=== PATIENT | female | born 1995 | race African-American/Black ===

== ENCOUNTER 2020-04-24 21:27 | Observation (INO) | payer SELFPAY ==
[~2020-04-24] VITALS: Ht 170.2 cm; Wt 56.5 kg
[~2020-04-24 21:27] MED LIST: GABA400C7 PO; GABA600T7 PO; INSU100I13 SQ; INSU100I17 SQ
[2020-04-24] MEDS ORDERED: ONDANSETRON ODT 4 MG TAB.RAPDIS. ONE (21:31)
[2020-04-24] MEDS ORDERED: IV NORMAL SALINE 1000ML BAG 1,000 ML IV ONE ×2 (22:00→22:45)
[2020-04-24] MEDS ORDERED: ONDANSETRON PF 4 MG/2 ML VIAL. IVP ONE (22:00)
--- NOTE | 2020-04-24 22:24 | PHYS DOC ---
Past Medical History Past Medical History: Diabetes-Type I Additional Past Medical Histor: GASTROPARESIS Past Surgical History: No Surgical History Additional Past Surgical Histo: LT OVARIAN CYST Smoking Status: Current Every Day Smoker Alcohol Use: None Drug Use: Marijuana Social History Narrative: DAILY MARIJUANA USE General Adult EDM: Chief Complaint: NAUSEA/VOMITING/DIARRHA HPI: HPI: 24-year-old female with a past medical history of IDDM presents for evaluation of nausea and vomiting and abdominal pain. Onset of symptoms 3 days ago. Patient unable to keep anything down. Patients abdominal pain is diffuse. Patient denies chest pain sob fever chills or urinary symptoms. Review of Systems: Review of Systems: Constitutional: Denies fever or chills. [] Eyes: Denies change in visual acuity. [] HENT: Denies nasal congestion or sore throat. [] Respiratory: Denies cough or shortness of breath. [] Cardiovascular: Denies chest pain or edema. [Positive] GI: Positive abdominal pain, nausea, vomiting, denies bloody stools or diarrhea. [] : Denies dysuria. [] Musculoskeletal: Denies back pain or joint pain. [] Integument: Denies rash. [] Neurologic: Denies headache, focal weakness or sensory changes. [] Endocrine: Denies polyuria or polydipsia. [] Lymphatic: Denies swollen glands. [] Psychiatric: Denies depression or anxiety. [] Heart Score: Risk Factors: Risk Factors: DM, Current or recent (<one month) smoker, HTN, HLP, family history of CAD, obesity. Risk Scores: Score 0 - 3: 2.5% MACE over next 6 weeks - Discharge Home Score 4 - 6: 20.3% MACE over next 6 weeks - Admit for Clinical Observation Score 7 - 10: 72.7% MACE over next 6 weeks - Early Invasive Strategies Current Medications: Current Medications Medications (Trade) Dose Ordered Sig/Felicity Start Time Stop Time Status Last Admin Dose Admin Ondansetron HCl (Zofran Odt) 4 mg STK-MED ONCE 04/24/20 21:31 04/24/20 21:31 DC Ondansetron HCl (Zofran) 4 mg 1X ONCE 04/24/20 22:00 04/24/20 22:01 DC Sodium Chloride 1,000 ml @ 1,000 mls/hr 1X ONCE 04/24/20 22:00 04/24/20 22:59 Allergies: Allergies: Allergies Coded Allergies Type Severity Reaction Last Updated Verified I S O L A T I O N *CONTACT* Allergy Unknown 05/06/18 Yes No Known Medication Allergies Allergy Unknown 05/06/18 Yes Physical Exam: PE: Constitutional: Well developed, well nourished, mild acute distress, non-toxic appearance. [] HENT: Normocephalic, atraumatic, bilateral external ears normal, oropharynx moist, no oral exudates, nose normal. [] Eyes: PERRLA, EOMI, conjunctiva normal, no discharge. [] Neck: Normal range of motion, no tenderness, supple, no stridor. [] Cardiovascular: Tachycardia Lungs & Thorax: Bilateral breath sounds clear to auscultation [] Abdomen: Bowel sounds normal, soft, diffuse tenderness, no masses, no pulsatile masses. [] Skin: Warm, dry, no erythema, no rash. [] Back: No tenderness, no CVA tenderness. [] Extremities: No tenderness, no cyanosis, no clubbing, ROM intact, no edema. [] Neurologic: Alert and oriented X 3, normal motor function, normal sensory function, no focal deficits noted. [] Psychologic: Affect normal, judgement normal, mood normal. [] Current Patient Data: Labs: Laboratory Tests Test 04/24/20 21:35 Glucose (Fingerstick) 232 mg/dL (70-99) H Vital Signs: Vital Signs Date Time Temp Pulse Resp B/P (MAP) Pulse Ox O2 Delivery O2 Flow Rate FiO2 04/24/20 21:29 99.2 137 17 146/86 (106) 100 Room Air 99.2 EKG: EKG: [] EKG taken at 2156 Heart rate [address] elevation no ST depression no acute MT Radiology/Procedures: Radiology/Procedures: [] Course & Med Decision Making: Course & Med Decision Making Pertinent Labs and Imaging studies reviewed. (See chart for details) [] Patient was evaluated for chief complaint. Work-up consisted of laboratory analysis and radiologic imaging. Results reviewed. Patient tachycardic heart rate in the 120s 130s. Patient was treated with multiple liters of IV fluids. Patient white blood cell count found to be 29. Treatment included morphine for pain, Zofran Reglan and Compazine. Difficulty controlling patient's nausea. CT abdomen shows no acute abnormalities. Patient ABG within normal limits. Patient admitted to the hospital for IV fluids and antiemetics. Dragon Disclaimer: Dragon Disclaimer: This electronic medical record was generated, in whole or in part, using a voice recognition dictation system. Departure Departure Impression: Primary Impression: Vomiting Additional Impressions: Leukocytosis Acute renal failure Abdominal pain Disposition: ADMITTED INPATIENT Admitting Physician: ARMEN Condition: STABLE Referrals: NO PCP (PCP) Justicifation of Admission Dx: Justifications for Admission: Justification of Admission Dx: Yes Acute Renal Failure: 3-Fold Rise in Serum Crea KIN LAMB I DO Apr 24, 2020 22:23
[2020-04-24 22:33] LABS: BASO # 0.1 x10^3/uL (0.0-0.2); BASO % 0 % (0-3); EOS % 0 % (0-3); HEMATOCRIT 38.8 % (36.0-47.0); HEMOGLOBIN 12.8 g/dL (12.0-15.5); LYMPH # 1.2 x10^3/uL (1.0-4.8); LYMPH % 4 % (24-48); MEAN CORPUSCULAR HEMOGLOBIN 29 pg (25-35); MEAN CORPUSCULAR HGB CONC 33 g/dL (31-37); MEAN CORPUSCULAR VOLUME 88 fL (79-100); MONO # 1.2 x10^3/uL (0.0-1.1); MONO % 4 % (0-9); NEUT # 26.7 x10^3/uL (1.8-7.7); NEUT % 92 % (31-73); PLATELET COUNT 301 x10^3/uL (140-400); RED BLOOD COUNT 4.41 x10^6/uL (3.50-5.40); RED CELL DISTRIBUTION WIDTH 14.3 % (11.5-14.5); WHITE BLOOD COUNT 29.2 x10^3/uL (4.0-11.0)
[2020-04-24] MEDS ORDERED: MORPHINE SULFATE 4 MG/ML VIAL. IV ONE (22:45)
[2020-04-24] MEDS ORDERED: METOCLOPRAMIDE HCL 10 MG/2 ML VIAL. IVP ONE (22:45)
[2020-04-24 22:48] LABS: CALCIUM 9.9 mg/dL (8.5-10.1); CREATININE 2.9 mg/dL (0.6-1.0); GFR 23.7; POTASSIUM 3.5 mmol/L (3.5-5.1)
[2020-04-24 22:54] LABS: ALBUMIN 4.5 g/dL (3.4-5.0); TOTAL BILIRUBIN 0.6 mg/dL (0.2-1.0); TOTAL PROTEIN 9.2 g/dL (6.4-8.2)
[2020-04-24 23:30] LABS: % BANDS 5 % (0-9); % LYMPHS 9 % (24-48); % MONOS 10 % (0-10); % SEGS 76 % (35-66)
[2020-04-24 23:31] LABS: PLT ESTIMATE ADEQUATE (ADEQUATE)
[2020-04-24 23:44] LABS: BILIRUBIN,URINE SMALL (NEG); CLARITY,URINE CLEAR; COLOR,URINE YELLOW; NITRITE,URINE NEGATIVE (NEG); PH,URINE 5.5 (<5.0-8.0); PROTEIN,URINE >=300 mg/dL (NEG-TRACE); UROBILINOGEN,URINE 0.2 mg/dL (0.2 mg/dL)
[2020-04-25 00:07] LABS: AMORPHOUS SEDIMENT,UR PRESENT /HPF; BACTERIA,URINE FEW /HPF (0-FEW); GRANULAR CASTS,URINE FEW /HPF; HYALINE CASTS, URINE FEW /HPF; SQUAMOUS EPITHELIAL CELL,UR FEW /LPF
--- NOTE | 2020-04-25 00:22 | RAD ---
CT abdomen pelvis without contrast. HISTORY: Abdominal pain, nausea and vomiting, elevated creatinine at 2.9. CT scan the abdomen pelvis was done without contrast. Lung bases are clear. There is no effusion. A liver lesion is not identified. There is no calcified gallstone. There is no renal or ureteral calculus. There is no hydronephrosis. Spleen and adrenal glands are normal. Pancreas is poorly evaluated. There is no free air or ascites. Appendix is normal. Bladder is distended. There is no bowel obstruction. There is a hiatus hernia. There is thickening of the distal esophagus is nonspecific. IMPRESSION: 1. Distended bladder. 2. Normal appendix. 3. Hiatus hernia. 4. Thickening the wall of the distal esophagus, upper endoscopy could be of benefit. PQRS Compliance Statement: One or more of the following individualized dose reduction techniques were utilized for this examination: 1. Automated exposure control 2. Adjustment of the mA and/or kV according to patient size 3. Use of iterative reconstruction technique Electronically signed by: Delfino Fischer MD (04/25/2020 12:19 AM) [id number]
[2020-04-25 00:32] LABS: BASE EXCESS ABG -1 mmol/L (-3-3); HCO3 ABG 24 mmol/L (21-28); PCO2 ABG 41 mmHg (35-46); PO2 ABG 81 mmHg (85-108); SAT O2 ABG 95 % (92-99)
[2020-04-25] MEDS ORDERED: PROCHLORPERAZINE 10 MG/2 ML VIAL. IV ONE (00:45)
[2020-04-25] MEDS ORDERED: ONDANSETRON PF 4 MG/2 ML VIAL. IV PRN (00:45)
[2020-04-25] MEDS ORDERED: IV NORMAL SALINE 1000ML BAG 1,000 ML IV ONE ×2 (00:45→03:00)
[2020-04-25 00:49] LABS: FIO2 ABG 21
[2020-04-25] MEDS ORDERED: PROCHLORPERAZINE 10 MG/2 ML VIAL. IV PRN (02:45)
[2020-04-25 03:02] VITALS: BP 148/84
--- NOTE | 2020-04-25 04:07 | NUR ---
Dr Ding notified that pt has critical BS - orders received - pt symptomatic with high blood sugar - [address] Ding. This RN pulled up insulin and had it witnessed per Giulia John RN and administered it due to pt beign symptomatic - nausea, hot dry skin, musty breath, very lethargic. Will continue to monitor pt status closely
[2020-04-25] MEDS ORDERED: IV DEXTROSE 5% 250 ML BAG. IV PRN (04:15)
[2020-04-25] MEDS ORDERED: DEXTROSE 50% 25 GM / 50ML DISP.SYRIN. IV PRN ×2 (04:15→07:45)
[2020-04-25] MEDS: INSULIN LISPRO 300 UNITS/3 ML VIAL. SQ ONE (04:45)
[2020-04-25 07:44] VITALS: BP 180/102
[2020-04-25] MEDS ORDERED: IV NORMAL SALINE 1000ML BAG 1,000 ML IV SCH (07:45)
[2020-04-25] MEDS ORDERED: INSULIN LISPRO 300 UNITS/3 ML VIAL. SQ SCH ×2 (08:00)
[2020-04-25] MEDS: ACETAMINOPHEN 325 MG TABLET. PO PRN ×2 (08:22→15:22)
[2020-04-25] MEDS: HEPARIN for SUB-Q USE 5,000 UNIT/ML VIAL. SQ SCH ×2 (08:30→13:32)
[2020-04-25] MEDS ORDERED: PANTOPRAZOLE IV PUSH 40 MG VIAL. IVP SCH (08:30)
[2020-04-25 08:31] LABS: AMPHETAMINE/METHAMPHETAMINE NEG (NEG); BARBITURATES NEG (NEG); BENZODIAZEPINES NEG (NEG); CANNABINOIDS POS (NEG); COCAINE NEG (NEG); METHADONE NEG (NEG); OPIATES NEG (NEG); PHENCYCLIDINE NEG (NEG)
[2020-04-25] MEDS ORDERED: INSULIN GLARGINE SYRINGE. SQ SCH ×2 (09:00→21:00)
--- NOTE | 2020-04-25 09:55 | NUR ---
Pt reports to this RN that she has an insulin pump in place that is now working. She reports basal dose is 0.7 units/hour. Glucose checks ACHS ordered, pt also periodically checks BS on her own. Pt able to give herself a bolus dose according to BS results. Pt agreed to notify this RN of any bolus doses administered through pump. This RN spoke to Dr. Will by telephone, orders received to discontinue insulin orders, as she has an insulin pump in place. Will start pt on ADA diet and monitor closely.
[2020-04-25] MEDS ORDERED: METOCLOPRAMIDE HCL 10 MG/2 ML VIAL. IVP PRN (10:15)
[2020-04-25] MEDS ORDERED: ONDANSETRON PF 4 MG/2 ML VIAL. IVP PRN (10:15)
--- NOTE | 2020-04-25 10:23 | PDOC1 ---
History and Physical Date of Admission Date of Admission DATE: 04/25/20 TIME: 10:10 Identification/Chief Complaint Chief Complaint NAUSEA AND VOMITING Problems: (1) Vomiting (2) Leukocytosis (3) Acute renal failure (4) Abdominal pain (5) Nausea & vomiting Source Source: Chart review, Patient History of Present Illness History of Present Illness 24 year old black female Insulin Dependent DM, no recent A1c who presents to the ED with nausea intractable non-bloody vomiting for 3 days. no diarrhea. decreased PO intake. patient has insulin pump. no fever at home. no chills or urinary symptoms. CT abdomen in ED shows: IMPRESSION: 1. Distended bladder. 2. Normal appendix. 3. Hiatus hernia. 4. Thickening the wall of the distal esophagus, upper endoscopy could be of benefit. in ED patient's with WBC 29k, cr 2.9. Past Medical History Past Medical History DM1, insulin dependent Pulmonary: No pertinent hx CENTRAL NERVOUS SYSTEM: Periperal neuropathy GI: GERD, Other Infectious disease: Other Endocrine: Diabetes Past Surgical History Past Surgical History: Other (ovarian cystectomy) Family History Family History: Hypertension Social History Smoke: No ALCOHOL: none Drugs: Marijuana Current Problem List Problem List Problems Medical Problems: (1) Abdominal pain Status: Acute (2) Vomiting Status: Acute Current Medications Current Medications Current Medications Ondansetron HCl (Zofran Odt) 4 mg STK-MED ONCE .ROUTE ; Start 04/24/20 at 21:31; Stop 04/24/20 at 21:31; Status DC Sodium Chloride 1,000 ml @ 1,000 mls/hr 1X ONCE IV Last administered on 04/24/20at 22:17; Start 04/24/20 at 22:00; Stop 04/24/20 at 22:59; Status DC Ondansetron HCl (Zofran) 4 mg 1X ONCE IVP Last administered on 04/24/20at 22:17; Start 04/24/20 at 22:00; Stop 04/24/20 at 22:01; Status DC Morphine Sulfate (Morphine Sulfate) 4 mg 1X ONCE IV Last administered on 04/24/20at 22:49; Start 04/24/20 at 22:45; Stop 04/24/20 at 22:46; Status DC Metoclopramide HCl (Reglan Vial) 10 mg 1X ONCE IVP Last administered on 04/24/20at 22:48; Start 04/24/20 at 22:45; Stop 04/24/20 at 22:46; Status DC Sodium Chloride 1,000 ml @ 1,000 mls/hr 1X ONCE IV Last administered on 04/24/20at 22:55; Start 04/24/20 at 22:45; Stop 04/24/20 at 23:44; Status DC Prochlorperazine Edisylate (Compazine) 10 mg 1X ONCE IV Last administered on 04/25/20at 00:52; Start 04/25/20 at 00:45; Stop 04/25/20 at 00:47; Status DC Ondansetron HCl (Zofran) 4 mg PRN Q8HRS PRN IV NAUSEA/VOMITING; Start 04/25/20 at 00:45; Stop 04/26/20 at 00:44 Sodium Chloride 1,000 ml @ 1,000 mls/hr 1X ONCE IV Last administered on 04/25/20at 00:52; Start 04/25/20 at 00:45; Stop 04/25/20 at 01:44; Status DC Sodium Chloride 1,000 ml @ 125 mls/hr 1X ONCE IV Last administered on 04/25/20at 03:25; Start 04/25/20 at 03:00; Stop 04/25/20 at 10:59 Prochlorperazine Edisylate (Compazine) 10 mg PRN Q6HRS PRN IV NAUSEA/VOMITING; Start 04/25/20 at 02:45 Insulin Glargine (Lantus Syringe) 10 unit BID SQ ; Start 04/25/20 at 09:00; Stop 04/25/20 at 09:40; Status DC Insulin Human Lispro (HumaLOG) 0-9 UNITS TIDWMEALS SQ ; Start 04/25/20 at 08:00; Stop 04/25/20 at 09:40; Status DC Dextrose (Dextrose 50%-Water Syringe) 12.5 gm PRN Q15MIN PRN IV SEE COMMENTS; Start 04/25/20 at 04:15; Stop 04/25/20 at 09:45; Status DC Dextrose (Iv Dextrose 5%) 250 ml PRN Q15MIN PRN IV SEE COMMENTS; Start 04/25/20 at 04:15 Insulin Human Lispro (HumaLOG) 12 units 1X ONCE SQ Last administered on at 04:45; Start 04/25/20 at 04:45; Stop 04/25/20 at 04:46; Status DC Sodium Chloride 1,000 ml @ 75 mls/hr [id number] IV ; Start 04/25/20 at 07:45 Heparin Sodium (Porcine) (Heparin Sodium) 5,000 unit Q8HRS SQ Last administered on 04/25/20at 08:30; Start 04/25/20 at 08:00 Acetaminophen (Tylenol) 650 mg PRN Q6HRS PRN PO fever Last administered on 04/25/20at 08:22; Start 04/25/20 at 07:45 Non-Formulary Medication (Insulin Aspart (Novolog Flexpen)) 1 unit TIDAC SQ ; Start 04/25/20 at 11:30; Status UNV Insulin Glargine (Lantus Syringe) 22 unit QHS SQ ; Start 04/25/20 at 21:00; Stop 04/25/20 at 09:40; Status DC Insulin Human Lispro (HumaLOG) 0-7 UNITS TIDWMEALS SQ ; Start 04/25/20 at 08:00; Stop 04/25/20 at 09:40; Status DC Dextrose (Dextrose 50%-Water Syringe) 12.5 gm PRN Q15MIN PRN IV SEE COMMENTS; Start 04/25/20 at 07:45 Pantoprazole Sodium (PROTONIX VIAL for IV PUSH) 40 mg DAILYAC IVP Last administered on 04/25/20at 08:46; Start 04/25/20 at 08:30 Active Scripts Active Reported Gabapentin 600 Mg Tablet 600 Mg PO PRN TID PRN Lantus Solostar (Insulin Glargine,Hum.rec.anlog) 100 Unit/1 Ml Insuln.pen 22 Unit SQ QHS Novolog Flexpen (Insulin Aspart) 100 Unit/1 Ml Insuln.pen 1 Unit SQ TIDAC Allergies Allergies: Coded Allergies: I S O L A T I O N *CONTACT* (Verified Allergy, Unknown, 05/06/18) mrsa No Known Medication Allergies (Verified Allergy, Unknown, 05/06/18) ROS Review of System CONSTITUTIONAL: No fever or chills EYES: No recent changes SKIN: No rash or itching CARDIOVASCULAR: No chest pain, syncope, palpitations, or edema RESPIRATORY: No SOB or cough GASTROINTESTINAL: No nausea, vomiting or abdominal pain NEUROLOGICAL: No headaches or weakness ENDOCRINE: No cold or heat intolerance GENITOURINARY: No urgency or frequency of urination MUSCULOSKELETAL: No back pain or joint pain LYMPHATICS: No enlarged lymph nodes PSYCHIATRIC: No anxiety or depression Physical Exam Physical Exam GENERAL: No apparent distress. Alert and oriented. HEENT: Head normocephalic, atraumatic. NECK: Supple LUNGS: Clear to auscultation. HEART: RRR, S1, S2 present, pulses intact ABDOMEN: Soft, positive bowel sounds. EXTREMITIES: No cyanosis or edema. NEUROLOGIC: Normal speech, normal tone PSYCHIATRIC: Normal affect, normal mood. SKIN: No ulceration. Vitals Vitals Vital Signs Date Time Temp Pulse Resp B/P (MAP) Pulse Ox O2 Delivery O2 Flow Rate FiO2 04/25/20 08:30 Room Air 04/25/20 07:44 98.7 126 24 180/102 (128) 96 98.7 Labs Labs Laboratory Tests Test 04/24/20 21:35 04/24/20 21:47 04/24/20 22:15 04/24/20 23:30 Glucose (Fingerstick) 232 mg/dL (70-99) O2 Saturation 95 % (92-99) Arterial Blood pH 7.39 (7.35-7.45) Arterial Blood pCO2 at Patient Temp 41 mmHg (35-46) Arterial Blood pO2 at Patient Temp 81 mmHg (85-108) Arterial Blood HCO3 24 mmol/L (21-28) Arterial Blood Base Excess -1 mmol/L (-3-3) FiO2 21 White Blood Count 29.2 x10^3/uL (4.0-11.0) Red Blood Count 4.41 x10^6/uL (3.50-5.40) Hemoglobin 12.8 g/dL (12.0-15.5) Hematocrit 38.8 % (36.0-47.0) Mean Corpuscular Volume 88 fL (79-100) Mean Corpuscular Hemoglobin 29 pg (25-35) Mean Corpuscular Hemoglobin Concent 33 g/dL (31-37) Red Cell Distribution Width 14.3 % (11.5-14.5) Platelet Count 301 x10^3/uL (140-400) Neutrophils (%) (Auto) 92 % (31-73) Lymphocytes (%) (Auto) 4 % (24-48) Monocytes (%) (Auto) 4 % (0-9) Eosinophils (%) (Auto) 0 % (0-3) Basophils (%) (Auto) 0 % (0-3) Neutrophils # (Auto) 26.7 x10^3/uL (1.8-7.7) Lymphocytes # (Auto) 1.2 x10^3/uL (1.0-4.8) Monocytes # (Auto) 1.2 x10^3/uL (0.0-1.1) Eosinophils # (Auto) 0.0 x10^3/uL (0.0-0.7) Basophils # (Auto) 0.1 x10^3/uL (0.0-0.2) Segmented Neutrophils % 76 % (35-66) Band Neutrophils % 5 % (0-9) Lymphocytes % 9 % (24-48) Monocytes % 10 % (0-10) Platelet Estimate Adequate (ADEQUATE) Sodium Level 134 mmol/L (136-145) Potassium Level 3.5 mmol/L (3.5-5.1) Chloride Level 90 mmol/L (98-107) Carbon Dioxide Level 27 mmol/L (21-32) Anion Gap 17 (6-14) Blood Urea Nitrogen 46 mg/dL (7-20) Creatinine 2.9 mg/dL (0.6-1.0) Estimated GFR (Cockcroft-Gault) 23.7 BUN/Creatinine Ratio 16 (6-20) Glucose Level 271 mg/dL (70-99) Lactic Acid Level 1.4 mmol/L (0.4-2.0) Calcium Level 9.9 mg/dL (8.5-10.1) Total Bilirubin 0.6 mg/dL (0.2-1.0) Aspartate Amino Transf (AST/SGOT) 21 U/L (15-37) Alanine Aminotransferase (ALT/SGPT) 37 U/L (14-59) Alkaline Phosphatase 105 U/L (46-116) Total Protein 9.2 g/dL (6.4-8.2) Albumin 4.5 g/dL (3.4-5.0) Albumin/Globulin Ratio 1.0 (1.0-1.7) Lipase 34 U/L (73-393) Urine Collection Type U cath Urine Color Yellow Urine Clarity Clear Urine pH 5.5 (<5.0-8.0) Urine Specific [place] 1.025 (1.000-1.030) Urine Protein >=300 mg/dL (NEG-TRACE) Urine Glucose (UA) >=1000 mg/dL (NEG) Urine Ketones (Stick) 40 mg/dL (NEG) Urine Blood Negative (NEG) Urine Nitrite Negative (NEG) Urine Bilirubin Small (NEG) Urine Urobilinogen Dipstick 0.2 mg/dL (0.2 mg/dL) Urine Leukocyte Esterase Negative (NEG) Urine RBC 1-2 /HPF (0-2) Urine WBC 1-4 /HPF (0-4) Urine Squamous Epithelial Cells Few /LPF Urine Amorphous Sediment Present /HPF Urine Bacteria Few /HPF (0-FEW) Urine Hyaline Casts Few /HPF Urine Granular Casts Few /HPF Urine Opiates Screen Neg (NEG) Urine Methadone Screen Neg (NEG) Urine Barbiturates Neg (NEG) Urine Phencyclidine Screen Neg (NEG) Urine Amphetamine/Methamphetamine Neg (NEG) Urine Benzodiazepines Screen Neg (NEG) Urine Cocaine Screen Neg (NEG) Urine Cannabinoids Screen Pos (NEG) Urine Ethyl Alcohol Neg (NEG) Test 04/24/20 23:34 04/25/20 03:18 04/25/20 05:23 04/25/20 07:28 Bedside Urine HCG, Qualitative Hcg negative (Negative) Glucose (Fingerstick) 503 mg/dL (70-99) 547 mg/dL (70-99) 325 mg/dL (70-99) Laboratory Tests Test 04/24/20 21:35 04/24/20 21:47 04/24/20 22:15 04/24/20 23:30 Glucose (Fingerstick) 232 mg/dL (70-99) O2 Saturation 95 % (92-99) Arterial Blood pH 7.39 (7.35-7.45) Arterial Blood pCO2 at Patient Temp 41 mmHg (35-46) Arterial Blood pO2 at Patient Temp 81 mmHg (85-108) Arterial Blood HCO3 24 mmol/L (21-28) Arterial Blood Base Excess -1 mmol/L (-3-3) FiO2 21 White Blood Count 29.2 x10^3/uL (4.0-11.0) Red Blood Count 4.41 x10^6/uL (3.50-5.40) Hemoglobin 12.8 g/dL (12.0-15.5) Hematocrit 38.8 % (36.0-47.0) Mean Corpuscular Volume 88 fL (79-100) Mean Corpuscular Hemoglobin 29 pg (25-35) Mean Corpuscular Hemoglobin Concent 33 g/dL (31-37) Red Cell Distribution Width 14.3 % (11.5-14.5) Platelet Count 301 x10^3/uL (140-400) Neutrophils (%) (Auto) 92 % (31-73) Lymphocytes (%) (Auto) 4 % (24-48) Monocytes (%) (Auto) 4 % (0-9) Eosinophils (%) (Auto) 0 % (0-3) Basophils (%) (Auto) 0 % (0-3) Neutrophils # (Auto) 26.7 x10^3/uL (1.8-7.7) Lymphocytes # (Auto) 1.2 x10^3/uL (1.0-4.8) Monocytes # (Auto) 1.2 x10^3/uL (0.0-1.1) Eosinophils # (Auto) 0.0 x10^3/uL (0.0-0.7) Basophils # (Auto) 0.1 x10^3/uL (0.0-0.2) Segmented Neutrophils % 76 % (35-66) Band Neutrophils % 5 % (0-9) Lymphocytes % 9 % (24-48) Monocytes % 10 % (0-10) Platelet Estimate Adequate (ADEQUATE) Sodium Level 134 mmol/L (136-145) Potassium Level 3.5 mmol/L (3.5-5.1) Chloride Level 90 mmol/L (98-107) Carbon Dioxide Level 27 mmol/L (21-32) Anion Gap 17 (6-14) Blood Urea Nitrogen 46 mg/dL (7-20) Creatinine 2.9 mg/dL (0.6-1.0) Estimated GFR (Cockcroft-Gault) 23.7 BUN/Creatinine Ratio 16 (6-20) Glucose Level 271 mg/dL (70-99) Lactic Acid Level 1.4 mmol/L (0.4-2.0) Calcium Level 9.9 mg/dL (8.5-10.1) Total Bilirubin 0.6 mg/dL (0.2-1.0) Aspartate Amino Transf (AST/SGOT) 21 U/L (15-37) Alanine Aminotransferase (ALT/SGPT) 37 U/L (14-59) Alkaline Phosphatase 105 U/L (46-116) Total Protein 9.2 g/dL (6.4-8.2) Albumin 4.5 g/dL (3.4-5.0) Albumin/Globulin Ratio 1.0 (1.0-1.7) Lipase 34 U/L (73-393) Urine Collection Type U cath Urine Color Yellow Urine Clarity Clear Urine pH 5.5 (<5.0-8.0) Urine Specific [place] 1.025 (1.000-1.030) Urine Protein >=300 mg/dL (NEG-TRACE) Urine Glucose (UA) >=1000 mg/dL (NEG) Urine Ketones (Stick) 40 mg/dL (NEG) Urine Blood Negative (NEG) Urine Nitrite Negative (NEG) Urine Bilirubin Small (NEG) Urine Urobilinogen Dipstick 0.2 mg/dL (0.2 mg/dL) Urine Leukocyte Esterase Negative (NEG) Urine RBC 1-2 /HPF (0-2) Urine WBC 1-4 /HPF (0-4) Urine Squamous Epithelial Cells Few /LPF Urine Amorphous Sediment Present /HPF Urine Bacteria Few /HPF (0-FEW) Urine Hyaline Casts Few /HPF Urine Granular Casts Few /HPF Urine Opiates Screen Neg (NEG) Urine Methadone Screen Neg (NEG) Urine Barbiturates Neg (NEG) Urine Phencyclidine Screen Neg (NEG) Urine Amphetamine/Methamphetamine Neg (NEG) Urine Benzodiazepines Screen Neg (NEG) Urine Cocaine Screen Neg (NEG) Urine Cannabinoids Screen Pos (NEG) Urine Ethyl Alcohol Neg (NEG) Test 04/24/20 23:34 04/25/20 03:18 04/25/20 05:23 04/25/20 07:28 Bedside Urine HCG, Qualitative Hcg negative (Negative) Glucose (Fingerstick) 503 mg/dL (70-99) 547 mg/dL (70-99) 325 mg/dL (70-99) VTE Prophylaxis Ordered VTE Prophylaxis Devices: Yes VTE Pharmacological Prophylaxi: Yes Assessment/Plan Assessment/Plan ASSESSMENT Nausea Vomiting and Abdominal Pain secondary to Diabetic Gastroparesis DKA DM1, insulin dependent via pump Acute Renal Failure Secondary to Vasomotor Nephropathy Leukocytosis PLAN admit to medical floor resume home insulin pump, sugars improved from 500s to 200s IVF IV reglan scheduled and prn zofran UDS negative normal lactate IV PPI therapy WBC elevated, defer abx for now labs in AM repeat BMP and ensure gap acidosis closed Thickening the wall of the distal esophagus GI consult Nephro consult no IV pain meds, prn tylenol for now NPO till seen by GI then CLD advance as tolerated. dvt ppx: heparin sq full code Justicifation of Admission Dx: Justifications for Admission: Justification of Admission Dx: Yes Acute Renal Failure: 3-Fold Rise in Serum Crea FERNY CARR MD Apr 25, 2020 10:22
[2020-04-25 11:20] LABS: CALCIUM 9.2 mg/dL (8.5-10.1); CREATININE 1.9 mg/dL (0.6-1.0); GFR 38.7; POTASSIUM 3.6 mmol/L (3.5-5.1)
[2020-04-25 11:22] VITALS: BP 171/97
[2020-04-25] MEDS ORDERED: NON FORMULARY ITEM (Insulin Aspart (Novolog Flexpen) 1 UNIT) SQ SCH (11:30)
[2020-04-25 15:31] VITALS: BP 170/82
--- NOTE | 2020-04-25 17:11 | NUR ---
Pt shares with this RN that she wants to leave and go home. This RN discussed with pt the risks of leaving AMA, which include, but are not limited to alteration in blood sugar, nausea/vomiting, diet restrictions, etc. Pt's IV removed with no complications. Dr. Álvarez notified of pt leaving AMA and [place], nursing terminal supervisor also notified. Zoila, charge nurse aware.
--- NOTE | 2020-04-25 17:20 | PDOC3 ---
Discharge Summary Visit Information Date of Admission: Apr 25, 2020 Date of Discharge: Apr 25, 2020 Admitting Diagnosis: Abdominal pain Final Diagnosis Problems Medical Problems: (1) Abdominal pain Status: Acute (2) Vomiting Status: Acute Brief Hospital Course Allergies Allergies Coded Allergies Type Severity Reaction Last Updated Verified I S O L A T I O N *CONTACT* Allergy Unknown 05/06/18 Yes No Known Medication Allergies Allergy Unknown 05/06/18 Yes Vital Signs Vital Signs Date Time Temp Pulse Resp B/P (MAP) Pulse Ox O2 Delivery O2 Flow Rate FiO2 04/25/20 15:31 98.8 112 16 170/82 (111) 98 Room Air 98.8 Lab Results Laboratory Tests Test 04/24/20 21:35 04/24/20 21:47 04/24/20 22:15 04/24/20 23:30 Glucose (Fingerstick) 232 mg/dL (70-99) O2 Saturation 95 % (92-99) Arterial Blood pH 7.39 (7.35-7.45) Arterial Blood pCO2 at Patient Temp 41 mmHg (35-46) Arterial Blood pO2 at Patient Temp 81 mmHg (85-108) Arterial Blood HCO3 24 mmol/L (21-28) Arterial Blood Base Excess -1 mmol/L (-3-3) FiO2 21 White Blood Count 29.2 x10^3/uL (4.0-11.0) Red Blood Count 4.41 x10^6/uL (3.50-5.40) Hemoglobin 12.8 g/dL (12.0-15.5) Hematocrit 38.8 % (36.0-47.0) Mean Corpuscular Volume 88 fL (79-100) Mean Corpuscular Hemoglobin 29 pg (25-35) Mean Corpuscular Hemoglobin Concent 33 g/dL (31-37) Red Cell Distribution Width 14.3 % (11.5-14.5) Platelet Count 301 x10^3/uL (140-400) Neutrophils (%) (Auto) 92 % (31-73) Lymphocytes (%) (Auto) 4 % (24-48) Monocytes (%) (Auto) 4 % (0-9) Eosinophils (%) (Auto) 0 % (0-3) Basophils (%) (Auto) 0 % (0-3) Neutrophils # (Auto) 26.7 x10^3/uL (1.8-7.7) Lymphocytes # (Auto) 1.2 x10^3/uL (1.0-4.8) Monocytes # (Auto) 1.2 x10^3/uL (0.0-1.1) Eosinophils # (Auto) 0.0 x10^3/uL (0.0-0.7) Basophils # (Auto) 0.1 x10^3/uL (0.0-0.2) Segmented Neutrophils % 76 % (35-66) Band Neutrophils % 5 % (0-9) Lymphocytes % 9 % (24-48) Monocytes % 10 % (0-10) Platelet Estimate Adequate (ADEQUATE) Sodium Level 134 mmol/L (136-145) Potassium Level 3.5 mmol/L (3.5-5.1) Chloride Level 90 mmol/L (98-107) Carbon Dioxide Level 27 mmol/L (21-32) Anion Gap 17 (6-14) Blood Urea Nitrogen 46 mg/dL (7-20) Creatinine 2.9 mg/dL (0.6-1.0) Estimated GFR (Cockcroft-Gault) 23.7 BUN/Creatinine Ratio 16 (6-20) Glucose Level 271 mg/dL (70-99) Lactic Acid Level 1.4 mmol/L (0.4-2.0) Calcium Level 9.9 mg/dL (8.5-10.1) Total Bilirubin 0.6 mg/dL (0.2-1.0) Aspartate Amino Transf (AST/SGOT) 21 U/L (15-37) Alanine Aminotransferase (ALT/SGPT) 37 U/L (14-59) Alkaline Phosphatase 105 U/L (46-116) Total Protein 9.2 g/dL (6.4-8.2) Albumin 4.5 g/dL (3.4-5.0) Albumin/Globulin Ratio 1.0 (1.0-1.7) Lipase 34 U/L (73-393) Urine Collection Type U cath Urine Color Yellow Urine Clarity Clear Urine pH 5.5 (<5.0-8.0) Urine Specific [place] 1.025 (1.000-1.030) Urine Protein >=300 mg/dL (NEG-TRACE) Urine Glucose (UA) >=1000 mg/dL (NEG) Urine Ketones (Stick) 40 mg/dL (NEG) Urine Blood Negative (NEG) Urine Nitrite Negative (NEG) Urine Bilirubin Small (NEG) Urine Urobilinogen Dipstick 0.2 mg/dL (0.2 mg/dL) Urine Leukocyte Esterase Negative (NEG) Urine RBC 1-2 /HPF (0-2) Urine WBC 1-4 /HPF (0-4) Urine Squamous Epithelial Cells Few /LPF Urine Amorphous Sediment Present /HPF Urine Bacteria Few /HPF (0-FEW) Urine Hyaline Casts Few /HPF Urine Granular Casts Few /HPF Urine Opiates Screen Neg (NEG) Urine Methadone Screen Neg (NEG) Urine Barbiturates Neg (NEG) Urine Phencyclidine Screen Neg (NEG) Urine Amphetamine/Methamphetamine Neg (NEG) Urine Benzodiazepines Screen Neg (NEG) Urine Cocaine Screen Neg (NEG) Urine Cannabinoids Screen Pos (NEG) Urine Ethyl Alcohol Neg (NEG) Test 04/24/20 23:34 04/25/20 03:18 04/25/20 05:23 04/25/20 07:28 Bedside Urine HCG, Qualitative Hcg negative (Negative) Glucose (Fingerstick) 503 mg/dL (70-99) 547 mg/dL (70-99) 325 mg/dL (70-99) Test 04/25/20 10:35 04/25/20 10:54 04/25/20 13:53 04/25/20 14:12 Sodium Level 134 mmol/L (136-145) Potassium Level 3.6 mmol/L (3.5-5.1) Chloride Level 96 mmol/L (98-107) Carbon Dioxide Level 24 mmol/L (21-32) Anion Gap 14 (6-14) Blood Urea Nitrogen 31 mg/dL (7-20) Creatinine 1.9 mg/dL (0.6-1.0) Estimated GFR (Cockcroft-Gault) 38.7 Glucose Level 151 mg/dL (70-99) Calcium Level 9.2 mg/dL (8.5-10.1) Glucose (Fingerstick) 119 mg/dL (70-99) 66 mg/dL (70-99) 139 mg/dL (70-99) Test 04/25/20 16:37 Glucose (Fingerstick) 161 mg/dL (70-99) Laboratory Tests Test 04/24/20 21:35 04/24/20 21:47 04/24/20 22:15 04/24/20 23:30 Glucose (Fingerstick) 232 mg/dL (70-99) O2 Saturation 95 % (92-99) Arterial Blood pH 7.39 (7.35-7.45) Arterial Blood pCO2 at Patient Temp 41 mmHg (35-46) Arterial Blood pO2 at Patient Temp 81 mmHg (85-108) Arterial Blood HCO3 24 mmol/L (21-28) Arterial Blood Base Excess -1 mmol/L (-3-3) FiO2 21 White Blood Count 29.2 x10^3/uL (4.0-11.0) Red Blood Count 4.41 x10^6/uL (3.50-5.40) Hemoglobin 12.8 g/dL (12.0-15.5) Hematocrit 38.8 % (36.0-47.0) Mean Corpuscular Volume 88 fL (79-100) Mean Corpuscular Hemoglobin 29 pg (25-35) Mean Corpuscular Hemoglobin Concent 33 g/dL (31-37) Red Cell Distribution Width 14.3 % (11.5-14.5) Platelet Count 301 x10^3/uL (140-400) Neutrophils (%) (Auto) 92 % (31-73) Lymphocytes (%) (Auto) 4 % (24-48) Monocytes (%) (Auto) 4 % (0-9) Eosinophils (%) (Auto) 0 % (0-3) Basophils (%) (Auto) 0 % (0-3) Neutrophils # (Auto) 26.7 x10^3/uL (1.8-7.7) Lymphocytes # (Auto) 1.2 x10^3/uL (1.0-4.8) Monocytes # (Auto) 1.2 x10^3/uL (0.0-1.1) Eosinophils # (Auto) 0.0 x10^3/uL (0.0-0.7) Basophils # (Auto) 0.1 x10^3/uL (0.0-0.2) Segmented Neutrophils % 76 % (35-66) Band Neutrophils % 5 % (0-9) Lymphocytes % 9 % (24-48) Monocytes % 10 % (0-10) Platelet Estimate Adequate (ADEQUATE) Sodium Level 134 mmol/L (136-145) Potassium Level 3.5 mmol/L (3.5-5.1) Chloride Level 90 mmol/L (98-107) Carbon Dioxide Level 27 mmol/L (21-32) Anion Gap 17 (6-14) Blood Urea Nitrogen 46 mg/dL (7-20) Creatinine 2.9 mg/dL (0.6-1.0) Estimated GFR (Cockcroft-Gault) 23.7 BUN/Creatinine Ratio 16 (6-20) Glucose Level 271 mg/dL (70-99) Lactic Acid Level 1.4 mmol/L (0.4-2.0) Calcium Level 9.9 mg/dL (8.5-10.1) Total Bilirubin 0.6 mg/dL (0.2-1.0) Aspartate Amino Transf (AST/SGOT) 21 U/L (15-37) Alanine Aminotransferase (ALT/SGPT) 37 U/L (14-59) Alkaline Phosphatase 105 U/L (46-116) Total Protein 9.2 g/dL (6.4-8.2) Albumin 4.5 g/dL (3.4-5.0) Albumin/Globulin Ratio 1.0 (1.0-1.7) Lipase 34 U/L (73-393) Urine Collection Type U cath Urine Color Yellow Urine Clarity Clear Urine pH 5.5 (<5.0-8.0) Urine Specific [place] 1.025 (1.000-1.030) Urine Protein >=300 mg/dL (NEG-TRACE) Urine Glucose (UA) >=1000 mg/dL (NEG) Urine Ketones (Stick) 40 mg/dL (NEG) Urine Blood Negative (NEG) Urine Nitrite Negative (NEG) Urine Bilirubin Small (NEG) Urine Urobilinogen Dipstick 0.2 mg/dL (0.2 mg/dL) Urine Leukocyte Esterase Negative (NEG) Urine RBC 1-2 /HPF (0-2) Urine WBC 1-4 /HPF (0-4) Urine Squamous Epithelial Cells Few /LPF Urine Amorphous Sediment Present /HPF Urine Bacteria Few /HPF (0-FEW) Urine Hyaline Casts Few /HPF Urine Granular Casts Few /HPF Urine Opiates Screen Neg (NEG) Urine Methadone Screen Neg (NEG) Urine Barbiturates Neg (NEG) Urine Phencyclidine Screen Neg (NEG) Urine Amphetamine/Methamphetamine Neg (NEG) Urine Benzodiazepines Screen Neg (NEG) Urine Cocaine Screen Neg (NEG) Urine Cannabinoids Screen Pos (NEG) Urine Ethyl Alcohol Neg (NEG) Test 04/24/20 23:34 04/25/20 03:18 04/25/20 05:23 04/25/20 07:28 Bedside Urine HCG, Qualitative Hcg negative (Negative) Glucose (Fingerstick) 503 mg/dL (70-99) 547 mg/dL (70-99) 325 mg/dL (70-99) Test 04/25/20 10:35 04/25/20 10:54 04/25/20 13:53 04/25/20 14:12 Sodium Level 134 mmol/L (136-145) Potassium Level 3.6 mmol/L (3.5-5.1) Chloride Level 96 mmol/L (98-107) Carbon Dioxide Level 24 mmol/L (21-32) Anion Gap 14 (6-14) Blood Urea Nitrogen 31 mg/dL (7-20) Creatinine 1.9 mg/dL (0.6-1.0) Estimated GFR (Cockcroft-Gault) 38.7 Glucose Level 151 mg/dL (70-99) Calcium Level 9.2 mg/dL (8.5-10.1) Glucose (Fingerstick) 119 mg/dL (70-99) 66 mg/dL (70-99) 139 mg/dL (70-99) Test 04/25/20 16:37 Glucose (Fingerstick) 161 mg/dL (70-99) Brief Hospital Course 24 year old black female Insulin Dependent DM, no recent A1c who presents to the ED with nausea intractable non-bloody vomiting for 3 days. no diarrhea. decreased PO intake. patient has insulin pump. no fever at home. no chills or urinary symptoms. CT abdomen in ED shows: IMPRESSION: 1. Distended bladder. 2. Normal appendix. 3. Hiatus hernia. 4. Thickening the wall of the distal esophagus, upper endoscopy could be of benefit. in ED patient's with WBC 29k, cr 2.9. She was hydrated throughout the day. At 1705 patient stated she would leave AMA due to not receiving enough IV pain medications. Problem list: Nausea Vomiting and Abdominal Pain secondary to Diabetic Gastroparesis DKA DM1, insulin dependent via pump Acute Renal Failure Secondary to Vasomotor Nephropathy Leukocytosis Greater than 135 minutes spent on patient care on day of admit, patient left AMA Discharge Information Condition at Discharge: Comment (AMA) Follow Up: Weeks Disposition/Orders: D/C to Home Scheduled Insulin Aspart (Novolog Flexpen) 100 Unit/1 Ml Insuln.pen, 1 UNIT SQ TIDAC for DM, (Reported) Entered as Reported by: JANNETTE VARGAS on 05/03/18620 Last Taken: Unknown Dose on Unknown Date & Time Last Action: Converted on 04/25/20735 by FERNY CARR MD Insulin Glargine,Hum.rec.anlog (Lantus Solostar) 100 Unit/1 Ml Insuln.pen, 22 UNIT SQ QHS for DM, #15 Ref 3 (Reported) Entered as Reported by: JANNETTE VARGAS on 05/03/18620 Last Taken: Unknown Dose on Unknown Date & Time Last Action: Converted on 04/25/20735 by FERNY CARR MD Scheduled PRN Gabapentin (Gabapentin) 600 Mg Tablet, 600 MG PO PRN TID PRN for PAIN, (Reported) Entered as Reported by: MILES PIRES on 10/09/181913 Last Action: HELD on 04/25/20735 by FERNY CARR MD Justicifation of Admission Dx: Justifications for Admission: Justification of Admission Dx: Yes Acute Renal Failure: 3-Fold Rise in Serum Crea DEIDRE WADE MD Apr 25, 2020 17:20
--- NOTE | 2020-04-25 17:20 | NUR ---
Pt left unit at 1720 via ambulation escorted by security and Shadow, NANO. Pt left by private vehicle with her "auntie."
[2020-04-26 01:11] LABS: HEMOGLOBIN A1C 10.7 % (4.8-5.6)
--- NOTE | 2020-04-27 11:50 | EKG ---
[facility] [address] [place] [address] Test Date: 2020-04-24 Test Time: 21:51:26 Pat Name: RUTHY RICKETTS Department: Room: [facility] Gender: F [employer]: : 1995 Requested By: KIN LAMB Order Number: [id number] Reading MD: Measurements Intervals [place] Rate: 128 P: 58 AR: 88 QRS: 48 QRSD: 102 T: -74 QT: 310 QTc: 456 Interpretive Statements SINUS TACHYCARDIA LEFT ATRIAL ABNORMALITY ABNORMAL ECG RI6.02 No previous ECG available for comparison
== END 2020-04-25 17:20 | disposition left against medical advice (07) ==
LOC: ER 21:27 → 6 SOUTH 04-25 01:10
PROVIDERS: ADMIT Internal Medicine; ATTEND Internal Medicine
DX: N17.0 Acute kidney failure with tubular necrosis (principal); K44.9 Diaphragmatic hernia without obstruction or gangrene; E10.43 Type 1 diabetes mellitus with diabetic autonomic (poly)neuropathy; E10.10 Type 1 diabetes mellitus with ketoacidosis without coma; K31.84 Gastroparesis; D72.829 Elevated white blood cell count, unspecified; R19.7 Diarrhea, unspecified; F12.10 Cannabis abuse, uncomplicated; Z72.0 Tobacco use
CPT/HCPCS: 36415; 36600; 74176; 80048; 80053; 80307; 81001; 81025; 82805; 82962; 83036; 83605; 83690; 85007; 85025; 87040; 96361; 96372; 96374; 96375; 96376; 99284; C9113; G0378; J0780; J1644; J1815; J2270; J2405; J2765; J7030; J7042; 93005; G0379